=== PATIENT | male | born 1980 ===

== ENCOUNTER 2023-11-25 16:20 | Outpatient (REF) | payer SELFPAY | END 2023-11-25 16:21 | disposition home or self-care (01) | LOC: HO.HHCLNP 16:20 | PROVIDERS: Visit Provider Registered Nurse | DX: L02.91 Cutaneous abscess, unspecified (principal) | CPT/HCPCS: 87070; 87077; 87147; 87186; 87205 ==

== ENCOUNTER 2023-12-26 09:34 | Outpatient (REF) | payer MEDICAID, SELFPAY ==
[2023-12-26 12:33] LABS: Alanine Aminotransferase 42 U/L (0-40); Albumin Level 4.4 g/dL (3.5-5.0); Alkaline Phosphatase 147 U/L (39-117); Anion Gap 12 (12-20); Aspartate Amino Transferase 24 U/L (5-37); Bilirubin Total 0.3 mg/dL (0.0-1.0); Blood Urea Nitrogen 9 mg/dL (9-16); Calcium 9.8 mg/dL (8.4-10.2); Carbon Dioxide 26 mmol/L (22-29); Chloride 102 mmol/L (96-108); Estimated Glomerular Filt Rate > 60; Glucose Random 234 mg/dL (60-115); Potassium 4.1 mmol/L (3.3-5.1); Sodium 136 mmol/L (135-145); Total Protein 7.7 g/dL (6.5-8.0)
[2023-12-26 12:35] LABS: Microalbum/Creatinine Ratio Ur 196.9 ug/mg cr (<30)
== END 2023-12-26 09:35 | disposition home or self-care (01) ==
LOC: HO.HHCL 09:34
PROVIDERS: Referring Provider Registered Nurse; Visit Provider Internal Medicine Geriatric Medicine
DX: E11.65 Type 2 diabetes mellitus with hyperglycemia (principal); Z79.4 Long term (current) use of insulin
CPT/HCPCS: 36415; 80053; 82043; 82570

== ENCOUNTER 2024-01-02 09:34 | Outpatient (REF) | payer MEDICAID, SELFPAY ==
[2024-01-02 12:21] LABS: HBS Num1 0.25 mIU/mL (0-7.99); HBc Num1 0.09 S/CO (0.00-0.79); HBsAGNum1 0.36 S/CO (0.00-0.99); Hepatitis A Antibody IgM 0.15 Index (0-0.79); Hepatitis B Core Antibody Nonreactive (Nonreactive); Hepatitis B Surface Antigen Negative (Negative); ~HepC Num1 0.09 S/CO (0.00-0.79); ~Hepatitis A Antibody IgM Nonreactive (Nonreactive); ~Hepatitis B Surface Antibody NONREACTIVE (Nonreactive); ~Hepatitis C Antibody Nonreactive (Nonreactive)
== END 2024-01-02 09:35 | disposition home or self-care (01) ==
LOC: HO.HHCL 09:34
PROVIDERS: Visit Provider Registered Nurse
DX: R74.8 Abnormal levels of other serum enzymes (principal)
CPT/HCPCS: 36415; 86704; 86706; 86709; 86803; 87340

== ENCOUNTER 2024-07-07 15:55 | Outpatient (REF) | payer MEDICAID, SELFPAY ==
--- OUTSIDE RECORDS SUMMARY | 2024-07-07 18:49 | XMS_ITS | Encounter Summary ---
Author Organization [employer] Address [address] [facility] 7t [place] [address] Care Team Providers Care Employee Health Rn Name Role Phone Kay Conroy RN Unavailable [phone] Name, Sheldon CANALES Primary Care Provider [phone] Manjula Escobedo PharmD Unavailable [phone] Encounter Details Date Type Department Care Team (Latest Contact Info) Description 07/07/2024 Travel Social History Tobacco Use Types Packs/Day Years Used Date Smoking Tobacco: Every Day Cigarettes Smokeless Tobacco: Never Depression Answer Date Recorded Patient Health Questionnaire-9 Score 1 12/13/2023 Patient Health Questionnaire-9 Score 1 12/13/2023 Last PHQ-9: Questionnaire Data Not on file 0 12/13/2023 Housing Stability Answer Date Recorded What is your housing situation today? I do not have housing (Staying with others, in a hotel, in a [place] [facility] [place], living outside on the street, on a beach, in a car, or in a park 12/09/[address] you li ve. Do you have problems with any of the following? None of the above 12/09/2023 Food Insecurity Answer Date Recorded Within the past 12 months, y ou worried that your food would run out before you got money to buy more: Never True 2023 Within the past 12 months,th e food you bought just didn't last and you didn't have enough money to get more: Sometimes True 12/13/2023 Transportation Answer Date Recorded In the past 12 months, has l ack of transportation kept you from medical appts, meetings, work or from getting things needed for daily living? Yes, it has kept me from medical appointments or getting medications. 12/09/2023 Utilities Answer Date Recorded In the past 12 months, has t he electric, gas, oil or water company threatened to shut off services in your home? No 12/09/2023 Depression Answer Date Recorded Patient Health Questionnaire-2 Score 0 12/13/2023 Internet Access Answer Date Recorded Internet Access Q1 Yes 12/09/2023 Internet Access Q2 Not on file 12/09/2023 Sex and Gender Information Value Date Recorded Sex Assigned at Male 11/25/2023 9:09 AM EDT Legal Sex Male 8:42 AM EDT Gender Identity Male 11/25/2023 9:09 AM EDT Sexual Orientation Straight 11/25/2023 9: 09 AM EDT documented as of this encounter Plan of Treatment Upcoming Encounters Date Type Department Care Team (Late st Contact Info) Description 07/28/2024 11:30 AM EDT Medication Management [facility] [address] [place] [phone] Manjula Escobedo PharmD [address] [place] [address] documented as of this encounter Visit Diagnoses Not on filedocumented in this encounter Additional Health Concerns Assessment Noted Time PHQ-9 Depression Total Score: 1 12/13/19 24 2:21 PM EDT documented as of this encounter Care Teams Employee Health Rn Relationship Specialty Start Date End Date Name, MD Sheldon [address] [place] [phone] PCP - General Internal Medicine 12/13/23 Kay Conroy RN [address] [place] [phone] Statistics TutorLiquid Flavor Compounder 12/09/23 Manjula Escobedo PharmD [address] [place] [address] Pharmacist Internal Medicine 01/09/24 Katie Escoto Community Health Worker Case Management 12/09/23 documented as of this encounter
--- OUTSIDE RECORDS SUMMARY | 2024-07-07 18:49 | XMS_ITS | Clinical Summary ---
Author Organization [employer] Address [address] [facility] 7t [place] [address] Care Team Providers Care Ceramic Tiler Name Role Phone Kay Conroy RN Unavailable [phone] Name, Sheldon CANALES Primary Care Provider [phone] Manjula Escobedo PharmD Unavailable [phone] Allergies No known active allergies Medications Alcohol Swabs (Alcohol Pads) 70 % padsIndicatio ns:Type 2 diabetes mellitus with hyperglycemia , without long-term current use of insulin (CMS/HCC) Use to prep skin before once weekly injection and check blood sugar three times daily 150 each 3 11/25/19 24 Active glucose blood test stripIndicati ons:Type 2 diabetes mellitus with hyperglycemia , without long-term current use of insulin (CMS/HCC) Use as directed to check blood sugar four times daily 100 each 12 12/09/19 24 Active sildenafil (Viagra) 50 MG tablet Take 1 tablet (50 mg) by mouth if needed each day for erectile dysfunction. 10 tablet 2 12/13/19 24 Active Blood Glucose Monitoring Suppl (FreeStyle [place] Lite) w/Device kit USE DIRECTED TO TEST BLOOD SUGAR FOUR TIMES DAILY DIRECTED 12/09/19 24 Active aspirin 81 MG EC tabletIndicat ions:Type 2 diabetes mellitus with hyperglycemia , without long-term current use of insulin (CMS/HCC) Take 1 tablet (81 mg) by mouth Once per day. 90 tablet 1 01/09/20 24 Active cinnamon 500 MG capsule Take 1,000 mg by mouth Once per day. OTC Active TRUEplus Lancets 33G misc Use to test blood sugar 2 time(s) daily as directed 100 each 3 02/11/20 Active irbesartan (Avapro) 150 MG tabletIndicat ions:Type 2 diabetes mellitus with hyperglycemia , without long-term current use of insulin ([facility]) Take 1 tablet (150 mg) by mouth at bedtime. 90 tablet 1 03/12/20 Active Additional Information Patient not taking.Reported on 06/18/2024 Blood Pressure kitIndication s:Type 2 diabetes mellitus with hyperglycemia , without long-term current use of insulin ([facility]) Use to check BP once daily & as directed 1 kit 04/14/19 25 Active empagliflozin (Jardiance) 10 MG Take 1 tablet (10 mg) by mouth Once per day. 30 tablet 06/18/19 25 026 Active Tirzepatide (Mounjaro) 5 MG/0.5ML solution auto-injector Inject 5 mg under the skin 1 (one) time per week. 2 mL 06/18/19 Active glipiZIDE XL (Glucotrol XL) 5 MG 24 hr tabletIndicat ions:Type 2 diabetes mellitus with hyperglycemia , without long-term current use of insulin (CMS/[facility]) Take 1 tablet (5 mg) by mouth with breakfast. Do not crush, chew, or split. 90 tablet 06/18/19 25 Active glipiZIDE XL (Glucotrol XL) 5 MG 24 hr tabletIndicat ions:Type 2 diabetes mellitus with hyperglycemia , without long-term current use of insulin ([facility]) Take 1 tablet (5 mg) by mouth with breakfast for 7 days, THEN 2 tablets (10 mg) with breakfast. Do not crush, chew, or split.. 173 tablet 03/12/20 025 Discontinued(Re order (will not trigger notification to Pharmacy)) semaglutide (Ozempic, 1 MG/DOSE,) 4 MG/3ML solution pen-injectorI ndications:Ty pe 2 Diabetes Mellitus Inject 1 mg under the skin 1 (one) time per week. 3 mL 04/15/19 25 025 Discontinued(Al ternate therapy) Active Problems Problem Noted Date Diagnosed Date Hypertension 07/07/2024 Type 2 diabetes mellitus wit h hyperglycemia, without long-term current use of insulin 03/23/2024 Assessment & Plan (03/23/2024 2:06 PM EST): A1c above goal Pt will continue on Trulicity and irbesartan, he will also start glipizide as prescribed Will be candidate for SGLT2i once Bg is more tightly controlled, consideration for future visits Maintenance BMP: pending Microalbumin: UTD, abnormal Foot Exam: UTD, normal Eye Exam: scheduled for 03/30/24 Lipid panel: pending Statin: yes ASA: yes ANDREA/ARB: yes Encouraged regular aerobic exercise for improved glycemic control Encouraged daily foot checks Encouraged lean protein snacks and to avoid foods high in sugar and simple carbohydrates Treatment Goals: A1c goal: <7% FBG goal: <130 2 hour post prandial goal: <180 Dietary counseling 03/23/2024 Assessment & Plan (03/23/2024 2:06 PM EST): Pt plans to limit carbohydrates and eat more fruits and vegetables Exercise counseling 03/23/2024 Assessment & Plan (03/23/2024 2:06 PM EST): Pt plans to exercise 30 minutes daily Sleep apnea in adult 03/23/2024 Assessment & Plan (03/23/2024 2:03 PM EST): Pt reports loud snoring at night Will send referral to sleep medicine for sleep study Cellulitis of left upper extremity 01/15/2024 Assessment & Plan (01/15/2024 3:01 PM EDT): I advise if area gets worse or no improvement if fever malaise or other symptoms to report back or go to ED Encounters Date Type Department Care Team Description 07/07/2024 3:30 PM EDT Office Visit [facility] [address] [place] [address] Name, MD Sheldon Type 2 diabetes mellitus with hyperglycemia, without long-term current use of insulin ([facility]) (Primary Dx); Hypertension, unspecified type 07/07/2024 Travel 07/06/2024 Telephone [facility] [address] [place] [address] Sidra Webb MA chart prep 06/18/2024 Telephone [facility] [address] [place] [address] Manjula Escobedo, PharmD Prior Authorization (Rodney) 06/17/2024 9:30 AM EDT Office Visit [facility] [address] [place] [address] Sherine Olmstead, OD Myopia, bilateral (Primary Dx) 06/17/2024 Travel 06/12/2024 Population Health Risk Score [facility] Department [address] [place] [phone] Provider, Population Health Generic 04/17/2024 3:15 PM EST Office Visit [facility] [address] [place] [address] Zulema Hanson, OD Type 2 diabetes mellitus without ophthalmic manifestations (CMS/HCC) (Primary Dx); Terrien's marginal degeneration of both corneas; Myopia, bilateral 04/17/2024 Travel 04/15/2024 Telephone [facility] [address] [place] [address] Manjula Escobedo, PharmD Prior Authorization (Rodney [place] denied 04/15, Cy [place] needed today ) 04/13/2024 Abstract [facility] [address] [place] [address] Name, MD Sheldon from Last 3 Months Immunizations Name Administration Dates Next Due Hep A, Adult 01/09/2024 HepB-CpG 02/11/2024,01/09/2024 Tdap 12/13/2023 Social History Tobacco Use Types Packs/Day Years Used Date Smoking Tobacco: Every Day Cigarettes Smokeless Tobacco: Never Tobacco Cessation:Ready to Q uit: Not Asked; Counseling Given: Not Answered Depression Answer Date Recorded Patient Health Questionnaire-9 Score 1 12/13/2023 Patient Health Questionnaire-9 Score 1 12/13/2023 Last PHQ-9: Questionnaire Data Not on file 0 12/13/2023 Housing Stability Answer Date Recorded What is your housing situation today? I do not have housing (Staying with others, in a hotel, in a [facility], living outside on the street, on a [...] Orientation Straight 11/25/2023 9: 09 AM EDT Last Filed Vital Signs Vital Sign Reading Time Taken Comments Blood Pressure 119/81 07/07/2024 3:33 PM EDT Pulse 109 07/07/2024 3:33 PM EDT Temperature 36.9 ??C (98.5 ??F) 07/07/2024 3:33 PM ED T Respiratory Rate 26 07/07/2024 3:33 PM EDT Oxygen Saturation 98% 07/07/2024 3:33 PM EDT Inhaled Oxygen Concentration - - Weight 115 kg (252 lb 9.6 oz) 07/07/2024 3:33 PM EDT Height 185.4 cm (6' 1 ) 07/07/2024 3:33 PM EDT Body Mass Index 33.33 07/07/2024 3:33 PM EDT Plan of Treatment Upcoming Encounters Date Type Department Care Team (Late st Contact Info) Description 07/28/2024 11:30 AM EDT Medication Management [facility] [address] [place] [address] Manjula Escobedo, PharmD [address] [place] [address] Health Maintenance Due Date Last Done Comments HIV Screening 1982 Lipid Panel 1982 Family Planning (PISQ) 1997 Pneumococcal Vaccine: Pediatrics (0 to 5 Years) and At-Risk Patients (6 to 49) Years) (1 of 2 - PCV) 2001 Diabetes: Hemoglobin A1C 09/17/2024 025, 03/12/2024, 11/25/2023 Influenza Vaccine (#1) 2024 Postp oned from 12/01/2023 (Patient Refused) SDOH Screening 12/08/2024 12/09/2023 Depression Screening 12/12/2024 12/13/2023, 12/13/19 24 Diabetes: Foot Exam 12/12/2024 12/13/2023, 12/13/2023, 12/13/2023, Additional history exists Diabetes: Urine Protein Screening 12/25/2024 12/26/2023 COVID-19 Vaccine ( season) 2025 Postponed from 12/01/2023 (Patient Refused) Alcohol/Substance Use Screening 07/07/2025 07/07/2024 Tobacco Screening 07/07/2025 07/07/2024 Eye Exam 04/17/2026 04/17/2024, 04/01, 04/17/2024, Additional history exists Zoster Vaccines (1 of 2) 2032 DTaP/Tdap/Td Vaccines (2 - Td or Tdap) 12/12/2033 12/13/2023 RSV Patients and Patients Aged 60 years or older (1 - 1-dose 75+ series) 2057 Hepatitis C Screening Completed 01/02/2024 Hepatitis A Vaccines Aged Out 01/09/2024 No long er eligible based on patient's age to complete this topic Hepatitis B Vaccines Completed 02/11/2024, 01/09/20 24 HIB Vaccines Aged Out No longer eligi ble based on patient's age to complete this topic HPV Vaccines Aged Out No longer eligi ble based on patient's age to complete this topic IPV Vaccines Aged Out No longer eligi ble based on patient's age to complete this topic Meningococcal Vaccine Aged Out No basia gen eligible based on patient's age to complete this topic RSV under 20 months Aged Out No longe r eligible based on patient's age to complete this topic Rotavirus Vaccines Aged Out No longer eligible based on patient's age to complete this topic Procedures Procedure Name Priority Date/Time Associated Diagnosis Comments POCT GLUCOSE Routine 07/07/2024 3:35 PM EDT Type 2 diabetes mellitus with hyperglycemia, without long-term current use of insulin (CMS/[facility]) POCT GLYCATED HEMOGLOBIN, TOTAL Routine 06/17/2024 4:30 PM EDT Type 2 diabetes mellitus with hyperglycemia, without long-term current use of insulin (CMS/HCC) OCT, ANTERIOR SEGMENT - OU - BOTH EYES Routine 04/17/2024 3:15 PM EST Terrien's marginal degeneration of both corneas HEPATITIS PANEL, GENERAL Routine 01/02/2024 9:35 AM EDT Elevated liver enzymes ALBUMIN, RANDOM URINE W/CREATININE Routine 12/26/2023 9:38 AM EDT Type 2 diabetes mellitus with hyperglycemia, without long-term current use of insulin (CMS/HCC) from Last 3 Months or Most Recently Relevant to Health Maintenance Results * POCT Glucose (07/07/2024 3:35 PM EDT) Glucose Blood, POC 185 60 - 200 mg/dL QC Media Lot # [id number] Lot# Expiration Date 82,625 Blood Capillary blood specimen / Unknown 07/07/2024 3:35 PM EDT us Sheldon Garza MD POINT OF CARE TEST ENTER/EDIT OR DERABLES Final Result * (ABNORMAL) POCT HGB A1C (06/17/2024 4:30 PM EDT) Hemoglobin A1C 9.6(A) 4.0 - 6.0 % Blood 06/17/2024 4:30 PM EDT Sheldon Garza MD POINT OF CARE TEST ENTER/EDIT OR DERABLES Final Result * Anterior Segment OCT - OU - Both Eyes (04/17/2024 3:15 PM EST) Narrative Zulema Hanson, OD - 04/21/2024 11:04 AM EST OCT Anterior Segment Reliability: OD: Good quality image OS: Adequate quality image, OCT scan not centered - cut off at the top Interpretation: OD: Peripheral stromal thinning present OS: Peripheral stromal thinning present Terriens marginal degeneration both eyes (OU) Zulema Hansno OD OPHTH TOMOGRAPHY Final Result * Hepatitis A,B,C Profile (01/02/2024 9:35 AM EDT) Hepatitis A IgM Nonreactive Nonreactive [facility] Comment:IgM antibodies to [place]WR[place] V not detected; does not exclude earlyacute or recovered HAV infection. ~Hepatitis B Surface Antibody NONREACTIVE Nonreactive [facility] Comment:Nonreactive: < 8.00 mIU/mL Hepatitis B Core Antibody Nonreactive Nonreactive [facility] Hepatitis C Antibody Nonreactive Nonreactive [facility] Comment:Antibodies to HCV no t detected; does not exclude early acuteHCV infection. Hepatitis B Surface Ag Negative Negative [facility] Blood Venous blood specimen / Unknown 01/02/2024 9:35 AM EDT 01/02/2024 11:16 AM EDT [facility] CTC OPERATOR LAB BLOOD ORDERABLES Final Re sult [facility] [address] [place] [phone] * (ABNORMAL) Albumin, Random Urine W/Creatinine (12/26/2023 9:38 AM EDT) Creatinine, Urine 112.70 mg/dL [facility] Microalbumin Urine 222.0 mg/L H [facility] Microalbum Creatinine Ratio Ur 196.9(H) <30 ug/mg cr [facility] Comment:Albumin/Creatinine R atio Reference Ranges: Normal: < 30 ug/mg creatinine Microalbuminuria: 30 - 300 ug/mg creatinineClinical Albuminuria: > 300 ug/mg creatinine Urine (Urine, Random) 12/26/2023 9:38 AM EDT 12/26/2023 11:34 AM EDT us Sheldon Name LAB URINE ORDERABLES Final Resul t [facility] [address] [place] [phone] from Last 3 Months or Most Recently Relevant to Health Maintenance Insurance [employer] Care Teams Ceramic Tiler Relationship Specialty Start Date End Date Name, MD Sheldon [address] [place] [address] PCP - General Internal Medicine 12/13/23 Kay Conroy RN [address] [place] [phone] Bus Info ConsultantIngot Supervisor 12/09/23 Manjula Escobedo PharmD [address] [place] [address] Pharmacist Internal Medicine 01/09/24 Katie Escoto Community Health Worker Case Management 12/09/23
--- OUTSIDE RECORDS SUMMARY | 2024-07-07 18:49 | XMS_ITS | Encounter Summary ---
Author Organization [employer] Address [address] [facility] 7t [place] [address] Care Team Providers Care Transcription Typist Name Role Phone Kay Conroy RN Unavailable [phone] Sheldon Garza MD Primary Care Provider [phone] Manjula Escobedo PharmD Unavailable [phone] Reason for Visit * Reason Comments Follow-up Encounter Details Date Type Department Care Team (Late st Contact Info) Description 07/07/2024 3:30 PM EDT Office Visit [facility] [address] [place], [place] [phone] Name, MD Sheldon [address] [place] [address] Type 2 diabetes mellitus with hyperglycemia, without long-term current use of insulin ([facility]) (Primary Dx); Hypertension, unspecified type Social History Tobacco Use Types Packs/Day Years [...] with others, in a hotel, in a jail, living outside on the street, on a [...] AM EDT documented as of this encounter Last Filed Vital Signs Vital Sign Reading [...] Mass Index 33.33 07/07/2024 3:33 PM EDT documented in this encounter Progress Notes * Sheldon Garza MD - 07/07/2024 3:30 PM EDT Subjective Patient ID: Judd Escoto is a 43 y.o. male who presents for Follow-up. Patient comes accompanied by his girlfriend. He is asymptomatic. He does not bring his glucose meter and is not checking his blood sugar often. He tells me he has been using his medications regularly. He tries to avoid sweets but is hard because he has a limited income and eats what he can. He still living in a jail but he recently got a job and he hopes to leave the jail soon. His most recent hemoglobin A1c is still above target but improved. His BP is normal today. He tells me he has been using his Avapro regularly. He agrees to go for blood work today. He refuses any vaccination. Review of Systems Constitutional: Negative for chills, fatigue and fever. HENT: Negative for sore throat. Respiratory: Negative for cough, chest tightness and shortness of breath. Cardiovascular: Negative for chest pain, palpitations and leg swelling. Gastrointestinal: Negative for abdominal pain and blood in stool. Visit Vitals BP 119/81 (BP Location: Left arm, Patient Position: Sitting, BP Cuff Size: Large adult) Pulse 109 Temp 98.5 ??F (36.9 ??C) (Oral) Resp 26 Ht 6' 1 (1.854 m) Wt 252 lb 9.6 oz (115 kg) SpO2 98% BMI 33.33 kg/m?? Smoking Status Every Day BSA 2.43 m?? Objective Physical Exam Constitutional: Appearance: Normal appearance. Cardiovascular: Rate and Rhythm: Normal rate and regular rhythm. Heart sounds: No murmur heard. Pulmonary: Effort: Pulmonary effort is normal. No respiratory distress. Breath sounds: No wheezing, rhonchi or rales. Abdominal: Palpations: Abdomen is soft. Tenderness: There is no abdominal tenderness. Musculoskeletal: Right lower leg: No edema. Left lower leg: No edema. Neurological: Mental Status: He is alert. Lab Results Component Value Date HGBA1C 9.6 (A) 06/17/2024 HGBA1C 10.7 (A) 03/12/2024 HGBA1C 11.2 (A) 11/25/2023 Assessment/Plan Diagnoses and all orders for this visit: Type 2 diabetes mellitus with hyperglycemia, without long-term current use of insulin ([facility]) Comments: I recommended to continue using medications as prescribed Try to avoid sweets He will go for blood work today and I ordered back in January. I added urine for microalbumin to the labs. He is recommended to keep upcoming appointment with [facility]. Orders: - POCT Glucose - Albumin, Random Urine W/Creatinine; Future Hypertension, unspecified type - Albumin, Random Urine W/Creatinine; Future documented in this encounter Plan of Treatment Upcoming Encounters Date Type Department Care Team (Late st Contact Info) Description 07/28/2024 11:30 AM EDT Medication Management [facility] [address] [place] [address] Manjula Escobedo, PharmD [address] [place] [address] Scheduled Orders Name Type Priority Associated Diagnoses Orde r Schedule Albumin, Random Urine W/Creatinine Lab Routine Type 2 diabetes mellitus with hyperglycemia, without long-term current use of insulin ([facility]) Hypertension, unspecified type Expected: 07/07/2024 (Approximate), Expires: 07/07/2025 documented as of this encounter Procedures Procedure Name Priority Date/Time Associated Diagnosis Comments POCT GLUCOSE Routine 07/07/2024 3:35 PM EDT Type 2 diabetes mellitus with hyperglycemia, without long-term current use of insulin ([facility]) documented in this encounter Results * POCT Glucose (07/07/2024 3:35 PM EDT) [facility] Signature Glucose Blood, POC 185 60 - 200 mg/dL QC Media Lot # [id number] Lot# Expiration Date 82,625 Blood Capillary blood specimen / Unknown 07/07/2024 3:35 PM EDT Sheldon Garza MD POINT OF CARE TEST ENTER/EDIT OR DERABLES Final Result documented in this encounter Visit Diagnoses Diagnosis Type 2 diabetes mellitus with hyperglycemia, without long-term current use of insulin ([facility])- Primary Hypertension, unspecified type documented in this encounter Additional Health Concerns Assessment Noted Time PHQ-9 Depression Total Score: 1 12/13/19 24 2:21 PM EDT documented as of this encounter Care Teams Transcription Typist Relationship Specialty Start Date End Date Sheldon Garza MD [address] [place] [address] PCP - General Internal Medicine 12/13/23 Kay Conroy, JOHN [address] [place] [address] Employee Health NursePhotographic Process Attendant 12/09/23 Manjula Escobedo PharmD [address] [place] [address] Pharmacist Internal Medicine 01/09/24 Katie Escoto Community Health Worker Case Management 12/09/23 documented as of this encounter
--- OUTSIDE RECORDS SUMMARY | 2024-07-07 18:49 | XMS_ITS | Encounter Summary ---
Author Organization [employer] Address [address] [facility] 7t [place] [address] Care Team Providers Care Student Truck Driver Name Role Phone Kay Conroy RN Unavailable Greg, Sheldon CANALES Primary Care Provider [phone] Manjula Escobedo PharmD Unavailable [phone] Reason for Visit * Reason Onset Date Comments chart prep 07/06/2024 Encounter Details Date Type Department Care Team ([facility] st Contact Info) Description 07/06/2024 Telephone [facility] MEDICINE [address] [place] [address] Sidra Webb MA chart prep Social History Tobacco Use Types Packs/Day Years [...] with others, in a hotel, in a intermediate, living outside on the street, on a [...] AM EDT documented as of this encounter Miscellaneous Notes * Telephone Encounter - Sidra Webb MA - 07/06/2024 3:28 PM EDT Chart Prep Labs: done Images: done Vaccines due: yes Referrals: complete Screenings: not applicable Overdue care gaps: Glucose and SBIRT documented in this encounter Plan of Treatment Upcoming Encounters Date Type Department Care Team (Late st Contact Info) Description 07/28/2024 11:30 AM EDT Medication Management [facility] MEDICINE [address] [place] [address] Manjula Escobedo, PharmD [address] [place] [address] documented as of this encounter Visit Diagnoses Not on filedocumented in this encounter Additional Health Concerns Assessment Noted Time PHQ-9 Depression Total Score: 1 12/13/19 24 2:21 PM EDT documented as of this encounter Care Teams Student Truck Driver Relationship Specialty Start Date End Date Name, MD Sheldon [address] [place] [address] PCP - General Internal Medicine 12/13/23 Kay Conroy, JOHN [address] [place] [address] Assistant BookkeeperCost And Sales Record Supervisor 12/09/23 Manjula Escobedo PharmD [address] [place], [place] [phone] Pharmacist Internal Medicine 01/09/24 Katie Escoto Community Health Worker Case Management 12/09/23 documented as of this encounter
--- OUTSIDE RECORDS SUMMARY | 2024-07-07 18:49 | XMS_ITS | Encounter Summary ---
Author Organization [employer] Address [address] [facility] 7t [place] [address] Care Team Providers Care Wellness Rn Name Role Phone Kay Conroy RN Unavailable [phone] Sheldon Garza MD Primary Care Provider [phone] Manjula Escobedo PharmD Unavailable [phone] Encounter Details Date Type Department Care Team ([facility] Contact Info) Description 03/13/2024 Orders Only [facility] Information Management [address] [place] [address] Provider, MD Josias Social History Tobacco Use Types Packs/Day Years [...] with others, in a hotel, in a long term, living outside on the street, on a [...] Description 07/28/2024 11:30 AM EDT Medication Management [facility] MEDICINE [address] [place] [address] Manjula Escobedo, PharmD [address] [place] [address] documented as of this encounter Procedures Procedure Name Priority Date/Time Associated Diagnosis Comments INFLUENZA VIRUS A AND B AND SARS-COV-2 (COVID-19) RNA Routine 03/12/2024 3:51 PM EST CBC Routine 03/12/2024 3:05 PM EST MAGNESIUM Routine 03/12/2024 3:05 PM EST BASIC METABOLIC PANEL Routine 03/12/2024 3:05 PM EST documented in this encounter Results * Influenza virus A and B and SARS-CoV-2 (COVID-19) RNA Panel (03/12/2024 3:51 PM EST) Historical Provider LAB MICROBIOLOGY - GENERA L ORDERABLES Final Result * CBC (03/12/2024 3:05 PM EST) Blood Venous blood specimen / Unknown Historical Provider LAB BLOOD ORDERABLES Stephany l Result * Basic Metabolic Panel (03/12/2024 3:05 PM EST) Blood Venous blood specimen / Unknown [facility] Provider LAB BLOOD ORDERABLES Stephany l Result * Magnesium (03/12/2024 3:05 PM EST) Blood Venous blood specimen / Unknown Historical Provider LAB BLOOD ORDERABLES Stephany l Result documented in this encounter Visit Diagnoses Not on filedocumented in this encounter Additional Health Concerns Assessment Noted Time PHQ-9 Depression Total Score: 1 12/13/19 24 2:21 PM EDT documented as of this encounter Care Teams Wellness Rn Relationship Specialty Start Date End Date Name, MD Sheldon [address] [place] [address] PCP - General Internal Medicine 12/13/23 Kay Conroy RN [address] [place] [address] AerodynamicistPurchasing And Claims Supervisor 12/09/23 Manjula Escobedo PharmD [address] [place] [address] Pharmacist Internal Medicine 01/09/24 Katie Escoto Community Health Worker Case Management 12/09/23 documented as of this encounter
[2024-07-07 18:57] LABS: Alanine Aminotransferase 44 U/L (0-40); Albumin Level 4.3 g/dL (3.5-5.0); Alkaline Phosphatase 110 U/L (39-117); Anion Gap 9 (12-20); Aspartate Amino Transferase 32 U/L (5-37); Bilirubin Direct 0.1 mg/dL (0.0-0.5); Bilirubin Total 0.3 mg/dL (0.0-1.0); Blood Urea Nitrogen 14 mg/dL (9-16); Calcium 9.3 mg/dL (8.4-10.2); Carbon Dioxide 26 mmol/L (22-29); Chloride 107 mmol/L (96-108); Cholesterol 182 mg/dL (<200); Estimated Glomerular Filt Rate > 60; Glucose Random 171 mg/dL (60-115); HDL Cholesterol 38 mg/dL (>40); LDL Cholesterol Calculated 102 mg/dL (<100); Potassium 4.1 mmol/L (3.3-5.1); Sodium 138 mmol/L (135-145); Total Protein 7.2 g/dL (6.5-8.0); Triglycerides 214 mg/dL (<150)
[2024-07-07 19:33] LABS: Creatinine Urine 58.77 mg/dL; Microalbum/Creatinine Ratio Ur 39.1 ug/mg cr (<30)
== END 2024-07-07 15:56 | disposition home or self-care (01) ==
LOC: HO.HHCL 15:55
PROVIDERS: Visit Provider Internal Medicine Geriatric Medicine
DX: E11.65 Type 2 diabetes mellitus with hyperglycemia (principal); I10 Essential (primary) hypertension
CPT/HCPCS: 36415; 80048; 80061; 80076; 82043; 82570

== ENCOUNTER 2024-09-25 13:32 | Outpatient (REF) | payer SELFPAY | END 2024-09-25 13:33 | disposition home or self-care (01) | LOC: HO.HHCX 13:32 | PROVIDERS: PCP Internal Medicine Geriatric Medicine; Visit Provider Nurse Practitioner Family | DX: Z13.89 Encounter for screening for other disorder (principal) ==

== ENCOUNTER 2024-09-25 13:39 | Outpatient (REF) | payer MEDICAID, SELFPAY ==
--- NOTE | ~2024-09-25 | XR_ITS ---
EXAMINATION: XR SHOULDER 2 OR MORE VIEWS RIGHT HISTORY: right shoulder pain and radiating to right hand COMPARISON: There are no prior studies available for comparison. FINDINGS: Four views of the right shoulder are submitted. Osseous mineralization is normal. There is no fracture or dislocation. The glenohumeral and acromioclavicular joint spaces are preserved. The soft tissues are unremarkable. XR/XR shoulder RT min 2V IMPRESSION: Unremarkable examination of the right shoulder. Electronically signed by: Andrew Cleaning MD 09/25/2024 01:56 PM EDT RP
== END 2024-09-25 13:40 | disposition home or self-care (01) ==
LOC: HO.HHCX 13:39
PROVIDERS: Visit Provider Nurse Practitioner Family
DX: M25.811 Other specified joint disorders, right shoulder (principal)
CPT/HCPCS: 73030

== ENCOUNTER → 2024-09-25 13:40 | Outpatient (BNV) | payer MEDICAID, SELFPAY | PROVIDERS: Visit Provider Radiology Diagnostic Radiology | DX: M25.511 Pain in right shoulder (principal) | CPT/HCPCS: 73030 ==

== ENCOUNTER 2024-12-29 14:31 | Outpatient (REF) | payer MEDICAID, SELFPAY ==
--- OUTSIDE RECORDS SUMMARY | 2024-12-29 14:00 | XMS_ITS | Encounter Summary ---
Author Organization [employer] Address [address] [facility] 7t [place] [address] Care Team Providers Care Evp Marketing Name Role Phone Kay Conroy RN Unavailable [phone] Sheldon Garza MD Primary Care Provider [phone] Manjula Escobedo PharmD Unavailable [phone] Reason for Visit * Reason Comments Annual Exam Encounter Details Date Type Department Care Team (Late st Contact Info) Description 12/29/2024 2:00 PM EDT Office Visit [facility] MEDICINE [address] [place] [phone] Name, MD Sheldon [address] [place], [place] [id number] Type 2 diabetes mellitus with hyperglycemia, without long-term current use of insulin ([facility]) (Primary Dx); Vaccine refused by patient; Chronic right shoulder pain Social History Tobacco Use Types Packs/Day Years Used Date Smoking Tobacco: Every Day Cigarettes Passive Smoke Exposure: Current Smokeless Tobacco: Never Tobacco Cessation:Ready to Q uit: Not Asked; Counseling Given: Not Answered Depression Answer Date Recorded Patient Health Questionnaire-9 Score 0 12/29/2024 Patient Health Questionnaire-9 Score 0 12/29/2024 Last PHQ-9: Questionnaire Data Not on file 0 12/29/2024 Housing Stability Answer Date Recorded What is your housing situation today? I have amy aguirre 12/21/[address] you li ve. Do you have problems with any of the following? None of the above 12/21/2024 Food Insecurity Answer Date Recorded Within the past 12 months, y ou worried that your food would run out before you got money to buy more: Never True 12/21/2024 Within the past 12 months,th e food you bought just didn't last and you didn't have enough money to get more: Never True Transportation Answer Date Recorded In the past 12 months, has l ack of transportation kept you from medical appts, meetings, work or from getting things needed for daily living? No 12/21/2024 Utilities Answer Date Recorded In the past 12 months, has t he electric, gas, oil or water company threatened to shut off services in your home? No 12/21/2024 Depression Answer Date Recorded Patient Health Questionnaire-2 Score 0 12/29/2024 Internet Access Answer Date Recorded Internet Access Q1 Yes 12/21/2024 Internet Access Q2 Not on file 12/21/2024 Sex and Gender Information Value Date Recorded Sex Assigned at Male 11/25/2023 9:09 AM EDT Legal Sex Male 8:42 AM EDT Gender Identity Male 11/25/2023 9:09 AM EDT Sexual Orientation Straight 11/25/2023 9: 09 AM EDT documented as of this encounter Last Filed Vital Signs Vital Sign Reading Time Taken Comments Blood Pressure 120/84 12/29/2024 2:07 PM EDT Pulse 74 12/29/2024 2:07 PM EDT Temperature 37.1 C (98.8 F) 12/29/2024 2:07 PM EDT Respiratory Rate 19 12/29/2024 2:07 PM EDT Oxygen Saturation - - Inhaled Oxygen Concentration - - Weight 113 kg (249 lb 2 oz) 12/29/2024 2:07 PM E DT Height 185.4 cm (6' 1 ) 12/29/2024 2:07 PM EDT Body Mass Index 32.87 12/29/2024 2:07 PM EDT documented in this encounter Functional Status * Over the past 2 weeks, how often have you been bothered by any of the following problems? Question Answer Date of Assessment Author Patient Health Questionnaire-2 Score 0 12/02 2:08 PM EDT Consuelo Pierre MA * Little interest or pleasure in doing things Answer Date of Assessment Author Not at all 12/29/2024 2:08 PM EDT Nadeen Pierre MA * Feeling down, depressed, or hopeless Answer Date of Assessment Author Not at all 12/29/2024 2:08 PM EDT Nadeen Pierre MA * Trouble falling or staying asleep, or sleeping too much Answer Date of Assessment Author Not at all 12/29/2024 2:08 PM EDT Nadeen Pierre MA * Feeling tired or having little energy Answer Date of Assessment Author Not at all 12/29/2024 2:08 PM EDT Nadeen Pierre MA * Poor appetite or overeating Answer Date of Assessment Author Not at all 12/29/2024 2:08 PM EDT Nadeen Pierre MA * Feeling bad about yourself - or that you are a failure or have let yourself or your family down Answer Date of Assessment Author Not at all 12/29/2024 2:08 PM EDT Nadeen Pierre MA * Trouble concentrating on things, such as reading the newspaper or watching television Answer Date of Assessment Author Not at all 12/29/2024 2:08 PM EDT Nadeen Pierre MA * Moving or speaking so slowly that other people could have noticed? Or the opposite - being so fidgety or restless that you have been moving around a lot more than usual. Answer Date of Assessment Author Not at all 12/29/2024 2:08 PM EDT Nadeen Pierre MA * Thoughts that you would be better off or hurting yourself in some way Answer Date of Assessment Author Not at all 12/29/2024 2:08 PM EDT Nadeen Pierre MA * Patient Health Questionnaire-9 Score Answer Date of Assessment Author 0 12/29/2024 2:08 PM EDT Nadeen Pierre MA documented as of this encounter Progress Notes * Sheldon Garza MD - 12/29/2024 2:00 PM EDT Images from the original note were not included. Subjective Patient ID: Judd Escoto is a 44 y.o. male who presents for Annual Exam. Patient comes for a physical exam. He is accompanied by his . He tells me he has been using his medications more often. He denies any side effects to his currentdose of Mounjaro. He continues to have a diet that is high in carbohydrates but he does not have much of a choice at the moment. The patient is living in a jail with his and he is awaiting an apartment. He refuses any vaccinations today. Review of Systems Constitutional: Negative for chills, fatigue and fever. HENT: Negative for sore throat. Respiratory: Negative for cough, chest tightness and shortness of breath. Cardiovascular: Negative for chest pain, palpitations and leg swelling. Gastrointestinal: Negative for abdominal pain and blood in stool. Musculoskeletal: Patient complains of several months of right shoulder pain, decreased range of motion of the right shoulder. No shoulder swelling or redness. Objective Vitals: 12/29/24 1407 BP: 120/84 BP Location: Left arm Patient Position: Sitting BP Cuff Size: Large adult Pulse: 74 Resp: 19 Temp: 98.8 ??F (37.1 ??C) TempSrc: Oral Weight: 249 lb 2 oz (113 kg) Height: 6' 1 (1.854 m) Physical Exam Constitutional: Appearance: Normal appearance. Cardiovascular: Rate and Rhythm: Normal rate and regular rhythm. Pulses: Dorsalis pedis pulses are 2+ on the right side and 2+ on the left side. Posterior tibial pulses are 2+ on the right side and 2+ on the left side. Heart sounds: No murmur heard. Pulmonary: Effort: Pulmonary effort is normal. No respiratory distress. Breath sounds: No wheezing, rhonchi or rales. Abdominal: Palpations: Abdomen is soft. Tenderness: There is no abdominal tenderness. Musculoskeletal: Right shoulder: Tenderness present. No swelling or deformity. Decreased range of motion. Left shoulder: Normal. Right lower leg: No edema. Left lower leg: No edema. Right foot: Normal range of motion. Left foot: Normal range of motion. Feet: Right foot: Protective Sensation: 5 sites tested. 5 sites sensed. Skin integrity: Skin integrity normal. Toenail Condition: Right toenails are normal. Left foot: Protective Sensation: 5 sites tested. 5 sites sensed. Skin integrity: Skin integrity normal. Toenail Condition: Left toenails are normal. Neurological: Mental Status: He is alert. Lab Results Component Value Date HGBA1C 8.9 (A) 12/14/2024 HGBA1C 7.1 (A) 09/14/2024 HGBA1C 9.6 (A) 06/17/2024 HGBA1C 10.7 (A) 03/12/2024 HGBA1C 11.2 (A) 11/25/2023 Latest Reference Range & Units 07/07/24 15:57 Glucose 60 - 115 mg/dL 171 (H) Urea Nitrogen (BUN) 9 - 16 mg/dL 14 Creatinine, Serum 0.5 - 1.4 mg/dL 1.25 Sodium 135 - 145 mmol/L 138 Potassium 3.3 - 5.1 mmol/L 4.1 Chloride 96 - 108 mmol/L 107 Carbon Dioxide 22 - 29 mmol/L 26 Calcium 8.4 - 10.2 mg/dL 9.3 Albumin Level 3.5 - 5.0 g/dL 4.3 Bilirubin, Total 0.0 - 1.0 mg/dL 0.3 AST 5 - 37 U/L 32 ALT 0 - 40 U/L 44 (H) Anion Gap 12 - 20 9 (L) Total Protein 6.5 - 8.0 g/dL 7.2 Cholesterol <200 mg/dL 182 HDL Cholesterol >40 mg/dL 38 (L) LDL Cholesterol Calculated <100 mg/dL 102 (H) Triglycerides <150 mg/dL 214 (H) Microalbumin Urine mg/L 23.0 Alkaline Phosphatase 39 - 117 U/L 110 Bilirubin, Direct 0.0 - 0.5 mg/dL 0.1 Creatinine, Urine mg/dL 58.77 Estimated Glomerular Filt Rate >60 Microalbum Creatinine Ratio Ur <30 ug/mg cr 39.1 (H) (H): Data is abnormally high (L): Data is abnormally low XR SHOULDER 1 VIEW RIGHT Order: [id number] Impression 1. No fracture or dislocation. 2. No osseous or joint abnormality identified to explain the shoulder pain. ATTESTATION: I, Andrew Terrell as teaching physician, have reviewed the images for this case and if necessary edited the report originally created by Divya Goldman. Narrative XR SHOULDER 2 OR MORE VIEWS (RIGHT) Referring clinician's provided indication for this examination in Epic: Pain COMPARISON: None FINDINGS: No fracture. Normal glenohumeral alignment and joint space. Normal acromioclavicular joint. Exam End: 10/24/24 14:28 Specimen Collected: 10/24/24 14:38 Last Resulted: 10/24/24 14:49 Received From: [facility] Result Received: 12/14/24 10:42 Assessment/Plan Diagnoses and all orders for this visit: Type 2 diabetes mellitus with hyperglycemia, without long-term current use of insulin ([facility]) Comments: I encouraged the patient to at least avoid sweetened beverages and soda, continue current medication regimen as prescribed, I recommended to walk after meals, acetaminophen as needed for right shoulder pain and keep upcoming appointment with orthopedics. Unfortunately he refused any vaccination today. Orders: - POCT Glucose Vaccine refused by patient Chronic right shoulder pain Future Appointments Date Time Provider Department Center 02/08/2025 11:30 AM Manjula Escobedo PharmD MEDICINE [facility] documented in this encounter Plan of Treatment Upcoming Encounters Date Type Department Care Team (Late st Contact Info) Description 02/08/2025 11:30 AM EST Medication Management [address] [address] Manjula Escobedo PharmD [address] [place] [address] 03/30/2025 11:15 AM EST Office Visit [address] [address] Name, MD Sheldon [address] [place] [address] documented as of this encounter Procedures Procedure Name Priority Date/Time Associated Diagnosis Comments POCT GLUCOSE Routine 12/29/2024 2:09 PM EDT Type 2 diabetes mellitus with hyperglycemia, without long-term current use of insulin ([facility]) documented in this encounter Results * POCT Glucose (12/29/2024 2:09 PM EDT) Glucose Blood, POC 135 60 - 200 mg/dL QC Media Lot # [id number] Lot# Expiration Date ,456,773 Blood Capillary blood specimen / Unknown 12/29/2024 2:09 PM EDT Sheldon Garza MD POINT OF CARE TEST ENTER/EDIT OR DERABLES Final Result documented in this encounter Visit Diagnoses Diagnosis Type 2 diabetes mellitus with hyperglycemia, without long-term current use of insulin (HCC)- Primary Vaccine refused by patient Chronic right shoulder pain Pain in joint, shoulder region documented in this encounter Additional Health Concerns Assessment Noted Time PHQ-9 Depression Total Score: 0 12/30/19 2:08 PM EDT documented as of this encounter Care Teams Evp Marketing Relationship Specialty Start Date End Date Name, MD Sheldon [address] [place] [address] PCP - General Internal Medicine 12/13/23 Kay Conroy RN [address] [place] [address] Family Law MediatorPinsetter Mechanic Automatic 12/09/23 Manjula Escobedo PharmD [address] [place] [address] Pharmacist Internal Medicine 01/09/24 Katie Escoto Community Health Worker Case Management 12/09/23 documented as of this encounter
--- OUTSIDE RECORDS SUMMARY | 2024-12-29 15:56 | XMS_ITS | Encounter Summary ---
Author Organization [facility] Address [address] [place] [address] Phone Care Team Providers Care Building Specialist Name Role Phone [facility], Facility Primary Care Provider Encounter Details Date Type Department Care Team (Late st Contact Info) Description 03/12/2024 Procedure Pass [facility], Ct Scan - [address] [address] Social History Tobacco Use Types Packs/Day Years Used Date Smoking Tobacco: Some Days Cigarettes Smokeless Tobacco: Former Chew Alcohol Use Standard Drinks/Week Comments Not Currently 0 (1 standard drink = 0.6 oz pur e alcohol) Education Answer Date Recorded Are you interested in more education? Not on rima e 12/17/2023 Are you concerned about learning? Not on file 12/17/2023 No 12/17/2023 No 12/17/2023 Digital Access Answer Date Recorded No 12/17/2023 No 12/17/2023 Reliable internet access at home? Not on file 12/17/2023 Device with a working camera? Not on file Intimate Partner Violence Answer Date R ecorded Are you denied basic needs s uch as food, clothing, or medical care? No 03/12/2024 In the past 12 months have y ou been in a relationship with a person who hurts, threatens, or tries to control you? No 03/12/2024 Are you denied basic needs s uch as food, clothing, or medical care? No 03/12/2024 In the past 12 months have y ou been in a relationship with a person who hurts, threatens, or tries to control you? No 03/12/2024 Sex and Gender Information Value Date Recorded Sex Assigned at Male 12/17/2023 2:26 AM EDT Legal Sex Male 1:39 AM EDT Gender Identity Male 12/17/2023 2:26 AM EDT Sexual Orientation Straight 12/17/2023 2: 26 AM EDT documented as of this encounter Functional Status * Calculated C-SSRS Risk Score (Lifetime/Recent) Answer Date of Assessment Author No Risk Indicated 03/12/2024 8:55 PM Sherri Dixon RN * Dewitt Suicide Severity Rating Scale (Screener/Recent Self-Report) Question Answer Date of Assessment Author 1. Wish to be (Past 1 Month) No 024 8:55 PM Sherri Jameson RN 2. Non-Specific Active Suici dean Thoughts (Past 1 Month) No 03/12/2024 8:55 PM Otto Jameson RN 6. Suicidal Behavior (Lifetime) No 8:55 PM Sherri Jameson RN documented as of this encounter Plan of Treatment Not on file documented as of this encounter Visit Diagnoses Not on filedocumented in this encounter Additional Health Concerns Infection Onset Date Last Indicated Resolved Time CoV-Risk 03/12/2024 03/12/2024 03/23/2024 1:22 AM EST CoV-Risk 04/24/2024 04/24/2024 05/05/2024 1:22 AM EST Influenza A 04/24/2024 04/24/2024 05/01/2024 1:22 AM EST documented as of this encounter Care Teams Building Specialist Relationship Specialty Start Date End Date [facility] [address] [place] [address] PCP - General 12/17/23 documented as of this encounter Additional Source Comments The information contained in this document represents components of the legal health record. It is not the complete legal health record.[facility]
--- OUTSIDE RECORDS SUMMARY | 2024-12-29 15:56 | XMS_ITS | Clinical Summary ---
Author Organization [employer] Address [address] [facility] [address] [place] [address] Care Team Providers Care Aircraft Fuselage Framer Name Role Phone Kay Conroy RN Unavailable [phone] Greg, Sheldon CANALES Primary Care Provider [phone] Manjula Escobedo PharmD Unavailable [phone] Allergies No known active allergies Medications * This document contains information received from the source organization and may not represent a complete record from that organization. Blood Glucose Monitoring Suppl (Appiphany Davis Lite) w/Device kit USE DIRECTED TO TEST BLOOD SUGAR FOUR TIMES DAILY DIRECTED 12/09/19 24 Active cinnamon 500 MG capsule Take 1,000 mg by mouth Once per day. OTC Active Blood Pressure kitIndications :Type 2 diabetes mellitus with hyperglycemia, without long-term current use of insulin (HCC) Use to check BP once daily & as directed 1 kit 04/14/19 25 Active loratadine (Claritin) 10 MG tablet Take 1 tablet by mouth Once per day. OTC Active glucose 4 g chewable tablet CHEW 1 TABLET EVERY DAY NEEDED FOR LOW BLOOD SUGAR 09/26/19 25 Active aspirin 81 MG EC tabletIndicati ons:Type 2 diabetes mellitus with hyperglycemia, without long-term current use of insulin (HCC) Take 1 tablet (81 mg) by mouth Once per day. 90 tablet 3 12/15/19 25 Active atorvastatin (Lipitor) 20 MG tabletIndicati ons:Type 2 diabetes mellitus with hyperglycemia, without long-term current use of insulin (HCC) Take 1 tablet (20 mg) by mouth Once per day. 90 tablet 1 12/15/19 25 Active glipiZIDE XL (Glucotrol XL) 5 MG 24 hr tabletIndicati ons:Type 2 diabetes mellitus with hyperglycemia, without long-term current use of insulin ([facility]) Take 2 tablets (10 mg) by mouth with breakfast. Do not crush, chew, or split. 180 tablet 12/15/19 Active irbesartan (Avapro) 150 MG tabletIndicati ons:Type 2 diabetes mellitus with hyperglycemia, without long-term current use of insulin ([facility]) Take 1 tablet (150 mg) by mouth at bedtime. 90 tablet 12/15/19 25 Active Alcohol Swabs (Alcohol Pads) 70 % padsIndication s:Type 2 diabetes mellitus with hyperglycemia, without long-term current use of insulin ([facility]) Use to prep skin before once weekly injection and to check blood sugar once daily 100 each 12/15/19 25 Active glucose blood test stripIndicatio ns:Type 2 diabetes mellitus with hyperglycemia, without long-term current use of insulin ([facility]) Use as directed to check blood sugar once daily 100 each 12/15/19 25 Active Tirzepatide (Mounjaro) 5 MG/0.5ML solution auto-injectorI ndications:Typ e 2 diabetes mellitus with hyperglycemia, without long-term current use of insulin ([facility]) Inject 5 mg under the skin 1 (one) time per week. 2 mL 12/15/19 25 Active Tirzepatide (Mounjaro) 2.5 MG/0.5ML solution auto-injectorI ndications:Typ e 2 diabetes mellitus with hyperglycemia, without long-term current use of insulin ([facility]) Inject 2.5 mg under the skin 1 (one) time per week for 25 days. 2 mL 12/15/19 25 025 Active TRUEplus Lancets 33G miscIndication s:Type 2 diabetes mellitus with hyperglycemia, without long-term current use of insulin ([facility]) Use to test blood sugar once daily as directed 100 each 12/15/19 25 Active empagliflozin (Jardiance) 10 MGIndications: Type 2 diabetes mellitus with hyperglycemia, without long-term current use of insulin (HCC) Take 1 tablet (10 mg) by mouth Once per day. 30 tablet 12/15/19 25 026 Active empagliflozin (Jardiance) 25 MGIndications: Type 2 diabetes mellitus with hyperglycemia, without long-term current use of insulin (HCC) Take 1 tablet (25 mg) by mouth Once per day. 90 tablet 3 12/15/19 25 Active Alcohol Swabs (Alcohol Pads) 70 % padsIndication s:Type 2 diabetes mellitus with hyperglycemia, without long-term current use of insulin (HCC) Use to prep skin before once weekly injection and check blood sugar three times daily 150 each 3 11/25/19 24 025 Discontinued(Re order (will not trigger notification to Pharmacy)) glucose blood test stripIndicatio ns:Type 2 diabetes mellitus with hyperglycemia, without long-term current use of insulin ([facility]) Use as directed to check blood sugar four times daily 100 each 12 12/09/19 24 025 Discontinued(Re order (will not trigger notification to Pharmacy)) sildenafil (Viagra) 50 MG tablet Take 1 tablet (50 mg) by mouth if needed each day for erectile dysfunction. 10 tablet 2 12/13/19 24 025 Discontinued(Me d list cleanup (will not trigger notification to Pharmacy)) TRUEplus Lancets 33G misc Use to test blood sugar 2 time(s) daily as directed 100 each 3 02/11/20 24 025 Discontinued(Re order (will not trigger notification to Pharmacy)) Tirzepatide (Mounjaro) 5 MG/0.5ML solution auto-injector Inject 5 mg under the skin 1 (one) time per week. 2 mL 06/18/19 025 Discontinued(Re order (will not trigger notification to Pharmacy)) atorvastatin (Lipitor) 20 MG tablet Take 1 tablet (20 mg) by mouth Once per day. 90 tablet 1 07/29/19 25 025 Discontinued(Re order (will not trigger notification to Pharmacy)) aspirin 81 MG EC tabletIndicati ons:Type 2 diabetes mellitus with hyperglycemia, without long-term current use of insulin (HCC) Take 1 tablet (81 mg) by mouth Once per day. 90 tablet 3 09/15/19 25 025 Discontinued(Re order (will not trigger notification to Pharmacy)) empagliflozin (Jardiance) 25 MGIndications: Type 2 diabetes mellitus with hyperglycemia, without long-term current use of insulin ([facility]) Take 1 tablet (25 mg) by mouth in the morning. 90 tablet 3 09/15/19 25 025 Discontinued(Al ternate therapy) irbesartan (Avapro) 150 MG tabletIndicati ons:Type 2 diabetes mellitus with hyperglycemia, without long-term current use of insulin (HCC) Take 1 tablet (150 mg) by mouth at bedtime. 90 tablet 3 09/15/19 25 025 Discontinued(Re order (will not trigger notification to Pharmacy)) glipiZIDE XL (Glucotrol XL) 5 MG 24 hr tabletIndicati ons:Type 2 diabetes mellitus with hyperglycemia, without long-term current use of insulin (HCC) Take 2 tablets (10 mg) by mouth with breakfast. Do not crush, chew, or split. 180 tablet 1 10/20/19 025 Discontinued(Re order (will not trigger notification to Pharmacy)) Active Problems Problem Noted Date Diagnosed Date Impingement of right shoulder 09/25/2024 Assessment & Plan (09/25/2024 1:23 PM EDT): Right shoulder pain, radiating to fingers , works in repetitive motions X-ray, referral to ortho Hypoglycemia 09/25/2024 Hypertension 07/07/2024 Type 2 diabetes mellitus wit [...] Encounters Date Type Department Care Team Description 12/29/2024 2:00 PM EDT Office Visit [address] [address] Sheldon Garza MD Type 2 diabetes mellitus with hyperglycemia, without long-term current use of insulin ([facility]) (Primary Dx); Vaccine refused by patient; Chronic right shoulder pain 12/29/2024 Travel 12/21/2024 Patient Outreach [facility] [address], [place] [phone] Sheldon Garza MD Pre-visit Planning (SDOH negative, Tobacco screening positive. ) 12/14/[address] [address] Manjula Escobedo, PharmD 12/14/2024 Travel 11/24/2024 Telephone [facility] [address] [place] [address] Sheldon Garza MD Nurse Triage 11/24/[address] [address] Sheldon Garza MD Nurse Triage 11/05/[address] [address] Sheldon Garza MD Nurse Triage 10/19/[address] [address] Manjula Escobedo, PharmD 10/19/2024 Travel 10/15/2024 3:30 PM EDT Office Visit [facility] [address] [place] [address] Amauryfrancois ZulemaJAZMYNE avitia 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 Insurance is now active and copy of verification is int pt chart.) 10/08/2024 Telephone [facility] [address] [place] [address] Jeanine Jeronimo RN from Last 3 Months Immunizations Immunization Administration Dates Next Due Hep A, Adult 07/28/2024,01/09/2024 HepB-CpG 02/11/2024,01/09/2024 Tdap 12/13/2023 Social History Tobacco [...] 19 12/29/2024 2:07 PM EDT Oxygen Saturation 99% 09/25/2024 1:07 PM EDT Inhaled Oxygen Concentration - - Weight 113 kg (249 lb 2 oz) 12/29/2024 2:07 PM E DT Height 185.4 cm (6' 1 ) 12/29/2024 2:07 PM EDT Body Mass Index 32.87 12/29/2024 2:07 PM EDT Plan of Treatment Upcoming Encounters Date Type Department Care Team (Late st Contact Info) Description 02/08/2025 11:30 AM EST Medication Management [facility] [address] [place] [phone] Manjula Escobedo, PharmD [address] [place] [phone] 03/30/2025 11:15 AM EST Office Visit [facility] [address] [place] [phone] Name, MD Sheldon [address] [place] [phone] Health Maintenance Due Date Last Done Comments HIV Screening 1982 Family Planning (PISQ) 1997 HPV Vaccines (1 - Male 3-dose series) 1997 Pneumococcal Vaccine: Pediatrics (0 to 5 Years) and At-Risk Patients (6 to 49) Years (1 of 2 - PCV) 2001 COVID-19 Vaccine (1 - season) 2024 Influenza Vaccine (#1) 2024 Diabetes: Hemoglobin A1C 03/15/2025 025, 09/14/2024, 06/17/2024, Additional history exists Alcohol/Substance Use Screening 07/07/2025 07/07/2024 Diabetes: Urine Protein Screening 07/07/2025 07/07/2024, 12/26/2023 Lipid Panel 07/07/2025 07/07/2024 SDOH Screening 12/21/2025 12/21/2024 Depression Screening 12/29/2025 12/29/2024, 12/30/19 Diabetes: Foot Exam 12/29/2025 12/29/2024, 12/29/2024, 12/29/2024, Additional history exists Disability Screening 12/29/2025 12/29/2024 Tobacco Screening 12/29/2025 12/29/2024 Eye Exam 04/17/2026 04/17/2024, 04/01, 04/17/2024, Additional history exists Zoster Vaccines (1 of 2) 2032 DTaP/Tdap/Td Vaccines (2 - Td or Tdap) 12/12/2033 12/13/2023 RSV Patients and Patients Aged 60 years or older (1 - 1-dose 75+ series) 2057 Hepatitis C Screening Completed 01/02/2024 Hepatitis B Vaccines Completed 02/11/2024, 01/09/20 24 Hepatitis A Vaccines Aged Out 07/28/2024, 01/09/20 24 No longer eligible based on patient's age to complete this topic HIB Vaccines Aged Out No longer eligi ble based on patient's age to complete this topic IPV Vaccines Aged Out No longer eligi ble based on patient's age to complete this topic Meningococcal B Vaccine Aged Out No l onger eligible based on patient's age to complete [...] of insulin ([facility]) POCT GLYCATED HEMOGLOBIN, TOTAL Routine 12/14/2024 12:44 PM EDT Type 2 diabetes mellitus with hyperglycemia, without long-term current use of insulin ([facility]) ALBUMIN, RANDOM URINE W/CREATININE Routine 07/07/2024 3:57 PM EDT Type 2 diabetes mellitus with hyperglycemia, without long-term current use of insulin ([facility]) Hypertension, unspecified type LIPID PANEL, STANDARD Routine 07/07/2024 3:57 PM EDT HEPATITIS PANEL, GENERAL Routine 01/02/2024 9:35 AM EDT Elevated liver enzymes from Last 3 Months or Most Recently Relevant to Health Maintenance Results * POCT Glucose (12/29/2024 2:09 PM EDT) Glucose Blood, POC 135 60 - 200 mg/dL QC Media Lot # [id number] Lot# Expiration Date ,536,092 Blood Capillary blood specimen / Unknown 12/29/2024 2:09 PM EDT us Sheldon Name POINT OF CARE TEST ENTER/EDIT OR DERABLES Final Result * (ABNORMAL) POCT Hgb A1c (12/14/2024 12:44 PM EDT) Hemoglobin A1C 8.9(A) 4.0 - 5.7 % Blood 12/14/2024 12:4 4 PM EDT us Sheldon Garza MD POINT OF CARE TEST ENTER/EDIT OR DERABLES Final Result * (ABNORMAL) Albumin, Random Urine W/Creatinine (07/07/2024 3:57 PM EDT) Creatinine, Urine 58.77 mg/dL [facility] Microalbumin Urine 23.0 mg/L H [facility] Microalbum Creatinine Ratio Ur 39.1(H) <30 ug/mg cr [facility] Comment:Albumin/Creatinine R atio Reference Ranges: Normal: < 30 ug/mg creatinine Microalbuminuria: 30 - 300 ug/mg creatinineClinical Albuminuria: > 300 ug/mg creatinine Urine (Urine, Random) 07/07/2024 3:57 PM EDT 07/07/2024 6:49 PM EDT us Sheldon Garza MD LAB URINE ORDERABLES Final Resul t Performing Organization Address City/State/[facility] Co de Phone Number [facility] [address] [place] [phone] * (ABNORMAL) Lipid Panel, Standard (07/07/2024 3:57 PM EDT) Triglycerides 214(H) <150 mg/dL [facility] Comment:Desirable Triglyceri de: less than 150 mg/dLBorderline High Triglyceride 150-199 mg/dLHigh Triglyceride: 200-499 mg/dLVery High Triglyceride: greater than or equal to 5OO mg/dL Cholesterol 182 <200 mg/dL [facility] Comment:Desirable Cholestero l: less than 200 mg/dLBorderline High Cholesterol: 200-239 mg/dLHigh Cholesterol: greater than 239 mg/dL LDL Cholesterol Calculated 102(H) <100 mg/dL [facility] Comment:Desirable LDL: less than 100 mg/dLNear Optimal/Above Optimal LDL: 110- 129 mg/dLBorderline High LDL: 130-159 mg/dLHigh LDL: 160-189 mg/dLVery High LDL: greater than or equal to 190 mg/dL HDL Cholesterol 38(L) >40 mg/dL [facility] Comment:Desirable HDL: great er than 40 mg/dL Note: This HDL assay may give artificially low results in patients with liver disease. 07/07/2024 3:57 PM EDT 07/07/2024 6:34 PM EDT Sheldon Greg CANALES LAB BLOOD ORDERABLES Final Resul t Performing Organization Address [facility] Co de Phone Number [facility] [address] [place] [phone] * Hepatitis A,B,C Profile (01/02/2024 9:35 AM EDT) Hepatitis A IgM Nonreactive Nonreactive [facility] Comment:IgM antibodies to [place]WRENCE V not detected; does not exclude earlyacute or recovered HAV infection. ~Hepatitis B Surface Antibody NONREACTIVE Nonreactive [facility] Comment:Nonreactive: < 8.00 mIU/mL Hepatitis B Core Antibody Nonreactive Nonreactive [facility] Hepatitis C Antibody Nonreactive Nonreactive [facility] Comment:Antibodies to HCV no t detected; does not exclude early acuteHCV infection. Hepatitis B Surface Ag Negative Negative [facility] Blood Venous blood specimen / Unknown 01/02/2024 9:35 AM EDT 01/02/2024 11:16 AM EDT [facility] EKG MONITOR LAB BLOOD ORDERABLES Final Re sult Performing Organization Address [facility] Co de Phone Number [facility] [address] [place] [phone] from Last 3 Months or Most Recently Relevant to Health Maintenance Insurance [facility] C3 Care Teams Aircraft Fuselage Framer Relationship Specialty Start Date End Date Name, MD Sheldon [address] [place] [address] PCP - General Internal Medicine 12/13/23 Kay Conroy, JONH [address] [place] [phone] [employer] SalesmanContracts Manager 12/09/23 Manjula Escobedo PharmD [address] [place] [address] Pharmacist Internal Medicine 01/09/24 Katie Escoto Community Health Worker Case Management 12/09/23
--- OUTSIDE RECORDS SUMMARY | 2024-12-29 15:56 | XMS_ITS | Clinical Summary ---
Author Organization [facility] Address [address] [place] [phone] Phone Care Team Providers Care Lens Block Gauger Name Role Phone [facility], [facility] Primary Care Provider Allergies No known active allergies Medications dulaglutide (TRULICITY) 1.5 mg/0.5 mL subcutaneous injection Inject 1.5 mg under the skin every 7 days. 12/13/2023 Active OZEMPIC 1 mg/dose (4 mg/3 mL) subcutaneous injection pen Inject 1 mg under the skin. 04/15/2024 Active aspirin 81 MG EC tablet Take 81 mg by mouth. 01/09/2024 Active Active Problems No known active problems Encounters Date Type Department Care Team Description 10/24/2024 1:12 PM EDT - 10/24/2024 3:35 PM EDT Emergency [facility] [address] [place] [address] Discharge Disposition: Home or Self Care 10/21/2024 Transcribe Orders [facility] Access Center - Virtual Department [address] [place] [phone] [facility] 10/09/2024 Transcribe Orders [facility] [address] [place] [address] Renata Barrett NP Encounter for rehabilitation (Primary Dx) from Last 3 Months Social History Tobacco Use Types Packs/Day Years Used Date Smoking Tobacco: Some Days Cigarettes Smokeless Tobacco: Former Chew Tobacco Cessation:Ready to Q uit: Not Asked; Counseling Given: Not Answered Alcohol Use Standard Drinks/Week Comments Not Currently 0 (1 standard drink = 0.6 oz pur e alcohol) Education Answer Date Recorded Are you interested in more education? Not on rima e 12/17/2023 Are you concerned about learning? Not on file 12/17/2023 No 12/17/2023 No 12/17/2023 Food Answer Date Recorded Within the past 6 months we worried whether our food would run out before we got money to buy more. Unable to assess 025 Within the past 6 months the food we bought just didn't last and we didn't have enough money to get more. Unable to assess 09/07/2024 Residential Stability Answer Date Recor ded What is your housing situation today? Unable to assess 09/07/2024 How many times have you moved in the past 12 sat ths? Unable to assess 09/07/2024 Paying for Meds Answer Date Recorded Do you have trouble paying for medicines? Unable to assess 09/07/2024 Paying Utility Bills Answer Date Record ed Do you have trouble paying y our heating or electricity bill? Unable to assess 09/07/2024 Transportation Answer Date Recorded Has the lack of transportati on kept you from medical appointments or from getting medications? Unable to assess 09/07/2024 Digital Access Answer Date Recorded No 09/07/2024 No 09/07/2024 Do you have reliable internet access at home? Un able to assess 09/07/2024 Do you have a device (e.g., phone, tablet, computer) with a working camera? Unable to assess 09/07/2024 Intimate Partner Violence Answer Date R ecorded Are you denied basic needs s uch as food, clothing, or medical care? No 10/24/2024 In the past 12 months have y ou been in a relationship with a person who hurts, threatens, or tries to control you? No 10/24/2024 Are you denied basic needs s uch as food, clothing, or medical care? No 10/24/2024 In the past 12 months have y ou been in a relationship with a person who hurts, threatens, or tries to control you? No 10/24/2024 Sex and Gender Information Value Date Recorded Sex Assigned at Male 12/17/2023 2:26 AM EDT Legal Sex Male 1:39 AM EDT Gender Identity Male 12/17/2023 2:26 AM EDT Sexual Orientation Straight 12/17/2023 2: 26 AM EDT Last Filed Vital Signs Vital Sign Reading Time Taken Comments Blood Pressure 122/74 10/24/2024 2:40 PM EDT Pulse 79 10/24/2024 2:40 PM EDT Temperature 36.5 C (97.7 F) 10/24/2024 2:40 PM EDT Respiratory Rate 18 10/24/2024 2:40 PM EDT Oxygen Saturation 97% 10/24/2024 2:40 PM EDT Inhaled Oxygen Concentration - - Weight 111.1 kg (245 lb) 10/24/2024 12:59 PM EDT Height 185.4 cm (6' 1 ) 10/24/2024 12:59 PM EDT Body Mass Index 32.32 10/24/2024 12:59 PM EDT Plan of Treatment Health Maintenance Due Date Last Done Comments DEPRESSION SCREENING 1994 SMOKING Hx and SMOKELESS TOBACCO SCREENING 08/03/1995 HEPATITIS C SCREENING 2000 HIV ONE-TIME SCREENING (18-65 YEARS) 2000 PNEUMOCOCCAL VACCINES (0-49 years) (1 of 2 - PCV) 2001 INFLUENZA VACCINE (#1) 2024 COVID-19 VACCINE ( - 2023- season) 2024 SCREENING FOR DIABETES 07/08/2027 , 03/23/2024, 12/13/2023, Additional history exists LIPID PANEL 07/07/2029 07/07/2024 Adult Td,Tdap Booster 12/12/2033 12/13/2023 HEPATITIS A VACCINES Aged Out No long er eligible based on patient's age to complete this topic HIB VACCINES Aged Out No longer eligi ble based on patient's age to complete this topic MENINGOCOCCAL VACCINES (ACWY) Aged Out No longer eligible based on patient's age to complete this topic MENINGOCOCCAL VACCINES (B) Aged Out N o longer eligible based on patient's age to complete this topic Medical Devices Not on file Procedures Procedure Name Priority Date/Time Associated Diagnosis Comments XR SHOULDER 2 VIEWS (RIGHT) Routine 10/24/2024 2:28 PM EDT from Last 3 Months Results * XR SHOULDER 2 VIEWS (RIGHT) (10/24/2024 2:28 PM EDT) Anatomical Region Laterality Modality Shoulder Right Computed Radiogr aphy 10/24/2024 2:38 PM EDT Impressions 10/24/2024 2:49 PM EDT 1. No fracture or dislocation. 2. No osseous or joint abnormality identified to explain the shoulder pain. ATTESTATION: Andrew Mehta as teaching physician, have reviewed the images for this case and if necessary edited the report originally created by Diyva Goldman. Narrative 10/24/2024 2:49 PM EDT XR SHOULDER 2 OR MORE VIEWS (RIGHT) Referring clinician's provided indication for this examination in Epic: Pain COMPARISON: None FINDINGS: No fracture. Normal glenohumeral alignment and joint space. Normal acromioclavicular joint. Procedure Note Andrew Terrell MD - 10/24/2024 XR SHOULDER 2 OR MORE VIEWS (RIGHT) Referring clinician's provided indication for this examination in Epic:Pain COMPARISON: None FINDINGS: No fracture. Normal glenohumeral alignment and joint space. Normalacromioclavicular joint. IMPRESSION: 1. No fracture or dislocation. 2. No osseous or joint abnormality identified to explain the shoulderpain. ATTESTATION: Andrew Mehta as teaching physician, have reviewed theimages for this case and if necessary edited the report originally createdby Divya Goldman. Shannan Singh PA-C IMG XR UPPER EXTREMIT Y Final Result from Last 3 Months Insurance [facility] C3 ACO C3 ACO C3 ACO C3 ACO [facility] C3 ACO [facility] C3 ACO Care Teams Lens Block Gauger Relationship Specialty Start Date End Date [facility] [address] [place] [address] PCP - General 12/17/23 Additional Source Comments The information contained in this document represents components of the legal health record. It is not the complete legal health record.[facility]
--- OUTSIDE RECORDS SUMMARY | 2024-12-29 15:56 | XMS_ITS | Encounter Summary ---
Author Organization [employer] Address [address] [facility] [address] [place] [address] Care Team Providers Care Manager Studio Name Role Phone Kay Conroy RN Unavailable [phone] Name, Sheldon CANALES Primary Care Provider [phone] Manjula Escobedo PharmD Unavailable [phone] Encounter Details Date Type Department Care Team (Latest Contact Info) Description 12/29/2024 Travel Social History Tobacco Use Types Packs/Day Years Used Date Smoking Tobacco: Every Day Cigarettes Passive Smoke Exposure: Current Smokeless Tobacco: Never Depression Answer Date Recorded [...] as of this encounter Functional Status * Over the [...] [place] documented as of this encounter Plan of Treatment Upcoming Encounters Date Type Department Care Team (Late st Contact Info) Description 02/08/2025 11:30 AM EST Medication Management [address] [address] Manjula Escobedo PharmD [address] [place] [address] 03/30/2025 11:15 AM EST Office Visit [address] [address] Name, MD Sheldon [address] [place] [id number] documented as of this encounter Visit Diagnoses Not on filedocumented in this encounter Additional Health Concerns Assessment Noted Time PHQ-9 Depression Total Score: 0 12/30/19 25 2:08 PM EDT documented as of this encounter Care Teams Manager Studio Relationship Specialty Start Date End Date Name, MD Sheldon [address] [place] [id number] PCP - General Internal Medicine 12/13/23 Kay Conroy, JOHN [address] [place] [phone] Director Child Abuse TherapyBrake Lining Finisher Asbestos 12/09/23 Manjula Escobedo PharmD [address] [place] [phone] Pharmacist Internal Medicine 01/09/24 Katie Escoto Community Health Worker Case Management 12/09/23 documented as of this encounter
--- OUTSIDE RECORDS SUMMARY | 2024-12-29 15:56 | XMS_ITS | Encounter Summary ---
Author Organization [employer] Address [address] [facility] [address] [place] [address] Care Team Providers Care End Frazer Name Role Phone Kay Conroy RN Unavailable [phone] Sheldon Garza MD Primary Care Provider [phone] Manjula Escobedo PharmD Unavailable [phone] Encounter Details Date Type Department Care Team ([facility] Contact Info) Description 03/13/2024 Orders Only [facility] [address] [place] [address] Provider, MD Josias Social History Tobacco Use [...] with others, in a hotel, in a skilled nursing, living outside on the street, on a [...] 9:09 AM EDT Sexual Orientation Straight 11/25/2023 9 :09 AM EDT documented as of this encounter Plan of Treatment Upcoming Encounters Date Type Department Care Team (Late st Contact Info) Description 02/08/2025 11:30 AM EST Medication Management [address] [address] Manjula Escobedo, PharmD [address] [place] [id number] 03/30/2025 11:15 AM EST Office Visit [address] [address] Name, MD Sheldon [address] [place] [phone] documented as of this encounter Procedures Procedure [...] (COVID-19) RNA Panel (03/12/2024 3:51 PM EST) us Historical Provider LAB MICROBIOLOGY - GENERA L ORDERABLES Final Result * CBC (03/12/2024 3:05 PM EST) Blood Venous blood specimen / Unknown Result [facility] Provider MD LAB BLOOD ORDERABLES Stephany l Result * Basic Metabolic Panel (03/12/2024 3:05 PM EST) Blood Venous blood specimen / Unknown Result [facility] Provider MD LAB BLOOD ORDERABLES Stephany l Result * Magnesium (03/12/2024 3:05 PM EST) Blood Venous blood specimen / Unknown Result [facility] Provider MD LAB BLOOD ORDERABLES Stephany l Result documented in this encounter Visit Diagnoses Not on filedocumented in this encounter Additional Health Concerns Assessment Noted Time PHQ-9 Depression Total Score: 1 12/13/19 24 2:21 PM EDT documented as of this encounter Care Teams End Frazer Relationship Specialty Start Date End Date Name, MD Sheldon [address] [place] [address] PCP - General Internal Medicine 12/13/23 Kay Conroy RN [address] [place] [phone] Corporate Services ManagerDisplay Decorator 12/09/23 Manjula Escobedo PharmD [address] [place] [address] Pharmacist Internal Medicine 01/09/24 Katie Escoto Community Health Worker Case Management 12/09/23 documented as of this encounter
[2024-12-29 16:47] LABS: Alanine Aminotransferase 47 U/L (0-40); Albumin Level 4.8 g/dL (3.5-5.0); Alkaline Phosphatase 148 U/L (39-117); Aspartate Amino Transferase 37 U/L (5-37); Cholesterol 166 mg/dL (<200); HDL Cholesterol 40 mg/dL (>40); Total Protein 7.6 g/dL (6.5-8.0); Triglycerides 103 mg/dL (<150)
[2024-12-29 17:48] LABS: Reflex LDLD? No
== END 2024-12-29 14:32 | disposition home or self-care (01) ==
LOC: HO.HHCL 14:31
PROVIDERS: PCP Internal Medicine Geriatric Medicine; Visit Provider Internal Medicine Geriatric Medicine
DX: E11.65 Type 2 diabetes mellitus with hyperglycemia (principal)
CPT/HCPCS: 36415; 80061; 80076